=== PATIENT | male | born 1960 | race African-American/Black ===

== ENCOUNTER 2019-05-01 20:26 | Emergency (ER) | payer MEDICAID | END 2019-05-01 21:10 | disposition home or self-care (01) | LOC: FTE 20:26 | DX: T16.2XXA Foreign body in left ear, initial encounter (principal); X58.XXXA Exposure to other specified factors, initial encounter; Y92.9 Unspecified place or not applicable | CPT/HCPCS: 69200; 99282-25 ==

== ENCOUNTER 2019-08-14 18:23 | Emergency (ER) | payer OTHER, MEDICAID | END 2019-08-14 19:10 | disposition home or self-care (01) | LOC: FTE 18:23 | DX: T16.1XXA Foreign body in right ear, initial encounter (principal); X58.XXXA Exposure to other specified factors, initial encounter; Y92.9 Unspecified place or not applicable | CPT/HCPCS: 69200; 99282-25 ==